=== PATIENT | female | born 2005 | race Caucasian/White ===

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

== ENCOUNTER 2025-09-03 20:33 | Emergency (ER) | payer MEDICAID ==
[~2025-09-03] VITALS: Ht 172.7 cm; Wt 59.1 kg
[~2025-09-03 20:33] MED LIST changes: +CIPR-173 PO; +HYDR-4902 PO; +ZOFR4T PO
[2025-09-03 22:06] VITALS: BP 98/62; PULSE 96; RESP 12; O2SAT 98
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
[2025-09-03] MEDS ORDERED: AMOX875T4 PO (22:20)
[2025-09-03] MEDS ORDERED: ACET500T58 PO (22:20)
[2025-09-03 22:38] VITALS: TEMP 98.8
[2025-09-03] MEDS: ACETAMINOPHEN 325 MG TAB PO ONE (22:38)
--- NOTE | 2025-09-03 22:50 | DVH ---
CLINICAL INDICATION: RIGHT 1ST FINGER, pain TECHNIQUE: XYXY R 1ST FINGER XRAY COMPARISON: None FINDINGS/IMPRESSION: : There is no evidence of acute fracture or dislocation. Soft tissues are unremarkable.
== END 2025-09-03 22:37 | disposition home or self-care (01) ==
LOC: EDBD 20:33 → ER 20:33
DX: S61.250A Open bite of right index finger without damage to nail, initial encounter (principal); Z91.040 Latex allergy status; Z88.2 Allergy status to sulfonamides; W50.3XXA Accidental bite by another person, initial encounter; Y93.89 Activity, other specified; Y92.89 Other specified places as the place of occurrence of the external cause; Y99.8 Other external cause status
CPT/HCPCS: 73140